=== PATIENT | female | born 1975 | race Caucasian/White ===

== ENCOUNTER 2016-06-06 00:10 | Emergency (ER) | payer SELFPAY ==
[~2016-06-06] VITALS: Ht 167.6 cm; Wt 94.4 kg
[2016-06-06 00:41] VITALS: BP 127/100
== END 2016-06-06 00:42 | disposition left against medical advice (07) ==
LOC: EME 00:10
DX: R06.02 Shortness of breath (principal); F41.9 Anxiety disorder, unspecified; C34.90 Malignant neoplasm of unspecified part of unspecified bronchus or lung; Z98.890 Other specified postprocedural states
CPT/HCPCS: 99281; 99283